=== PATIENT | male | born 1990 | race Caucasian/White ===

== ENCOUNTER → 2017-06-02 | Day surgery (SDC) | payer BC ==
[~2017-06-02] VITALS: Ht 172.7 cm; Wt 60.5 kg
[~2017-06-02] MED LIST: EpHEDrine SULFATE 50MG/5ML SYR ONE; LEVO1TAB35 PO; LIDOCAINE HCL 2% 2 ML VIAL (20MG/ML) ONE; MIDAZOLAM HCL 1 MG/ML 2ML VIAL ONE; PHENYLEPHRINE 100MCG/ML 5ML SYR ONE; PROPOFOL IV EMULSION 10 MG/ML 20 ML VIAL IV ONE; SODIUM CHLORIDE 0.9% 500ML 500 ML IV ONE
[2017-06-02 13:14] VITALS: Ht 172.7 cm; Wt 60.5 kg
--- NOTE | 2017-06-02 14:19 | Endo History and Physical ---
History & Physical Date of Service: Jun 02, 2017. Chief Complaint: HEMATOCHEZIA Referring Physician: DR EDIL MCCOY History of Present Illness Rectal bleeding post polypectomy Past Surgical History Hx Cardiac Surgery: No Hx Internal Defibrillator: No Hx Pacemaker: No Hx Abdominal Surgery: No Hx of Implantable Prosthesis: No Hx Post-Op Nausea and Vomiting: No Hx Cancer Surgery: No Hx Thoracic Surgery: No Hx Orthopedic: No Hx Urinary Tract Surgery: No Family History Polyp Social History Smoking Status: Never Smoker Hx Substance Use: No Hx Alcohol Use: Yes (RARELY ) Allergies Coded Allergies: No Known Allergies (Unverified , 06/02/17) Current Medications Reported Home Medications Medications Dose Route/Sig Max Daily Dose Days Date Category Levaquin (Levofloxacin) 750 Mg Tab 750 Mg PO DAILY 06/02/17 Reported Vital Signs Weight (Kilograms): 60.45 Height (Feet): 5 Height (Inches): 8 Date Time Temp Pulse Resp B/P (MAP) Pulse Ox O2 Delivery O2 Flow Rate FiO2 06/02/17 13:29 36.6 78 20 126/77 (93) 100 Room Air Physical Exam General Appearance: no apparent distress Respiratory/Chest: Auscultation: breath sounds normal Cardiovascular: Heart Auscultation: RRR Abdomen: Inspection & Palpation: soft, non-distended Assessment and Plan Stable for colonoscopy
--- NOTE | 2017-06-02 15:46 | Discharge Instructions ---
Endoscopy Patient Instructions Date / Procedure(s) Performed Jun 02, 2017. Colonoscopy Allergy Information Coded Allergies: No Known Allergies (Unverified , 06/02/17) Discharge Date / Findings Jun 02, 2017. Postpolypectomy with active bleeding and attached clips, more clips added and injected Epi. Bleeding stopped. Provider Instructions Activity Restrictions - No exercising or heavy lifting for 24 hours. - Do not drink alcohol the day of the procedure. - Do not drive a car or operate machinery until the day after the procedure. - Do not make any important decisions or sign important papers in 24 hours after the procedure. Following Day: - Return to full activity which may include returning to work/school. Diet Start your diet with liquids and light foods (jello, soup, juice, toast). Then eat your usual diet if not nauseated. Treatment For Common After Affects For mild abdominal pain, bloating, or excessive gas: - Rest - Eat lightly - Lie on right side Follow-Up Information Follow-up with DR COFFMAN, DR SOLO as scheduled Anesthesia Information What You Should Know You have had a procedure that required some medicine to reduce anxiety and discomfort. This treatment is called moderate sedation. After receiving the treatment, you may be sleepy, but you will be able to breathe on your own. The effects of the treatment may last for several hours. Follow these instructions along with Activity/Diet recommendations noted above: * Do NOT do anything where dizziness or clumsiness would be dangerous. * Rest quietly at home today, then you can be up and about tomorrow. * Have a responsible person stay with you the rest of today. * You may have had an I.V. today. If so, you may take the dressing off later today. Recommendations Call your doctor if: * Trouble breathing * Continuous vomiting for more than 24 hours * Temperature above 101 degrees * Severe abdominal pain or bloating * Pain not relieved by pain medicine ordered * There is increased drainage or redness from any incision * A large amount of rectal bleeding greater than 2-3 tablespoons. (If you had a polyp/s removed or have hemorrhoids, a small amount of blood - from the rectum is to be expected.) * You have any unanswered questions or concerns. IN THE EVENT OF A SERIOUS EMERGENCY, GO TO THE NEAREST EMERGENCY ROOM Your discharge instructions were prepared by provider Adrianna Delgado. Patient Instructions Signature Page Aditya Patient (or Guardian) Signature/Date: I have read and understand the instructions given to me by my caregivers. Caregiver/RN/Doctor Signature/Date: The above-named patient and/or guardian has received patient instructions on this date. + Original Patient Signature Page (only) stays with chart. Please make copy for patient.
--- NOTE | 2017-06-02 15:59 | GI REPORT ---
Procedure Date: 06/02/2017 2:33 PM Procedure: Colonoscopy Indications: Rectal bleeding, Treatment of bleeding from polypectomy site Medicines: Monitored Anesthesia Care Complications: No immediate complications. Estimated Blood Loss: Estimated blood loss: none. Procedure: Pre-Anesthesia Assessment: - Prior to the procedure, a History and Physical was performed, and patient medications and allergies were reviewed. The patient is competent. The risks and benefits of the procedure and the sedation options and risks were discussed with the patient. All questions were answered and informed consent was obtained. Patient identification and proposed procedure were verified by the physician and the nurse in the procedure room. Mental Status Examination: alert and oriented. Airway Examination: normal oropharyngeal airway and neck mobility. Respiratory Examination: clear to auscultation. CV Examination: normal. ASA Grade Assessment: II - A patient with mild systemic disease. After reviewing the risks and benefits, the patient was deemed in satisfactory condition to undergo the procedure. The anesthesia plan was to use monitored anesthesia care (MAC). Immediately prior to administration of medications, the patient was re-assessed for adequacy to receive sedatives. The heart rate, respiratory rate, oxygen saturations, blood pressure, adequacy of pulmonary ventilation, and response to care were monitored throughout the procedure. The physical status of the patient was re-assessed after the procedure. After I obtained informed consent, the scope was passed under direct vision. Throughout the procedure, the patient's blood pressure, pulse, and oxygen saturations were monitored continuously. The scope was introduced through the anus and advanced to the terminal ileum. The colonoscopy was performed without difficulty. The patient tolerated the procedure well. The quality of the bowel preparation was good. The terminal ileum, ileocecal valve, appendiceal orifice, and rectum were photographed. Findings: The perianal and digital rectal examinations were normal. The terminal ileum appeared normal. Red blood with clots was found only in the recto-sigmoid colon, yellow colored effluent was found in the entire colon. A few small, clean, superficial ulcers were found scattered in the entire colon, likely related to prior random biopsies. No bleeding was present. No stigmata of recent bleeding were seen. Two area of prior polypectomy with a single clip attached on each of them with adherent clot around the clip and active bleeding under the clip was seen in the recto-sigmoid colon, secondary to previous polypectomy procedure. For hemostasis, four hemostatic clips were successfully placed (MR conditional) on the first one and two hemostatic clips on the second one. There was no bleeding at the end of the procedure. Area was successfully injected with 4 mL of a 1:10,000 solution of epinephrine for hemostasis. No bleeding seen at the end of the procedure. Impression: - The examined portion of the ileum was normal. - Blood only in the recto-sigmoid colon. Yellow effluent in the right rest of the colon. - A few nonbleeding superficial ulcers in the entire examined colon likely related to prior random biopsies . - Active bleeding in the recto-sigmoid colon secondary to previous polypectomy. Clips (MR conditional) were placed. Injected. - No specimens collected. Recommendation: - Discharge patient to home. - Soft diet today then advance tomorrow. - Return to referring physician. Adrianna Delgado MD 06/02/2017 3:59:39 PM This report has been signed electronically. Note Initiated On: 06/02/2017 2:33 PM I attest to the content of the Intraoperative Record and orders documented therein, exceptions below
[2017-06-02 16:17] VITALS: BP 116/70; PULSE 80; O2SAT 100
--- NOTE | 2017-06-02 16:24 | Anesthesiology Progress Note ---
Anesthesia Post Op Note Date & Time Jun 02, 2017 at 16:24 Vital Signs Pain Intensity: 6 Vital Signs Past 12 Hours Date Time Temp Pulse Resp B/P (MAP) Pulse Ox O2 Delivery O2 Flow Rate FiO2 06/02/17 16:17 80 20 116/70 (85) 100 Room Air 06/02/17 16:02 87 20 127/68 (87) 100 Room Air 06/02/17 15:45 85 24 116/65 (82) 100 Room Air 06/02/17 13:29 36.6 78 20 126/77 (93) 100 Room Air Notes Mental Status: alert / awake / arousable, participated in evaluation Pt Amnestic to Procedure: Yes Nausea / Vomiting: adequately controlled Pain: adequately controlled Airway Patency, RR, SpO2: stable & adequate BP & HR: stable & adequate Hydration State: stable & adequate Anesthetic Complications: no major complications apparent
== END | disposition home or self-care (01) ==
LOC: C.GI 12:47
PROVIDERS: ATTEND Student in an Organized Health Care Education/Training Program
DX: K91.840 Postprocedural hemorrhage of a digestive system organ or structure following a digestive system procedure (principal); Y83.9 Surgical procedure, unspecified as the cause of abnormal reaction of the patient, or of later complication, without mention of misadventure at the time of the procedure